=== PATIENT | female | born 1965 | race Caucasian/White ===

== ENCOUNTER 2023-12-24 14:37 | Outpatient (CLI) | payer OTHER | END 2023-12-24 14:38 | disposition home or self-care (01) | LOC: CSHULT 14:37 | PROVIDERS: ATTEND Internal Medicine Hematology & Oncology | DX: Z51.11 Encounter for antineoplastic chemotherapy (principal); C50.812 Malignant neoplasm of overlapping sites of left female breast; I42.7 Cardiomyopathy due to drug and external agent | CPT/HCPCS: 93306 ==

== ENCOUNTER 2024-04-07 12:46 | Outpatient (CLI) | payer OTHER | END 2024-04-07 12:47 | disposition home or self-care (01) | LOC: CSHULT 12:46 | PROVIDERS: ATTEND Internal Medicine Hematology & Oncology | DX: Z51.11 Encounter for antineoplastic chemotherapy (principal); C50.812 Malignant neoplasm of overlapping sites of left female breast; I42.7 Cardiomyopathy due to drug and external agent; I51.89 Other ill-defined heart diseases | CPT/HCPCS: 93306 ==